=== PATIENT | female | born 1975 | race American Indian/Alaskan Native ===

== ENCOUNTER 2019-05-08 10:11 | Outpatient (CLI) | payer SELFPAY ==
--- NOTE | 2019-05-08 16:21 | Mammography Report ---
DIGITAL SCREENING MAMMOGRAM WITH CAD, 05/08/2019 INDICATION: Routine screening mammography. TECHNIQUE: Digital bilateral 2D mammography was obtained in the craniocaudal and mediolateral obliq ue projections. This examination was interpreted with the benefit of Computer-Aided Detection analysi s. COMPARISON: None available. However, she indicated that she had a prior mammogram at [place]. FINDINGS: Breast Density: The breasts are heterogeneously dense, which may obscure small masses. A right asymmetry on the MLO view requires comparison with the prior mammogram or additional imaging. No architectural distortion or suspicious calcifications of the right breast. There is no evidence o f dominant mass, suspicious calcifications or architectural distortion in the left breast. IMPRESSION:Comparison with a prior mammogram is recommended. We will attempt to obtain a mammogram fo r comparison. If we do not obtain a prior mammogram within 30 days, a revised report will be issued r ecommending a recall for additional imaging. Please be advised that the patient should not schedule a n appointment for return until adequate time (at least 2 weeks) has passed for us to obtain the prior mammogram. Follow up recommendation: Obtain prior study for comparison Category 0: Incomplete. Needs additional imaging evaluation and/or prior mammograms for comparison. A "normal" or negative report should not discourage follow up or biopsy of a clinically significant f inding. A written summary of these findings will be mailed to the patient. The patient will be entered into a mammography reporting system which will generate a reminder letter for the patient's next appointmen t at the appropriate interval. The [employer] recommends yearly mammograms starting at age 40 and continuing as l jeffrey as a woman is in good health. Breast MRI is recommended for women with an approximate 20-25% or greater lifetime risk of breast cancer, including women with a strong family history of breast or ova yordy cancer or who have been treated for Hodgkin's disease. Signer Name: Dom Lewis MD Signed: 05/08/2019 4:17 PM Workstation Name: [id number]
== END 2019-05-08 10:12 | disposition home or self-care (01) ==
LOC: MAMMO 10:11
PROVIDERS: ATTEND Internal Medicine
DX: Z12.31 Encounter for screening mammogram for malignant neoplasm of breast (principal)
CPT/HCPCS: 77067